=== PATIENT | male | born 1955 | race Caucasian/White ===

== ENCOUNTER 2020-07-07 15:53 | Emergency (ER) | payer OTHER, SELFPAY ==
[~2020-07-07] VITALS: Ht 172.7 cm; Wt 63.5 kg
[2020-07-07 16:29] VITALS: BP 115/68; Ht 172.7 cm; Wt 63.5 kg
== END 2020-07-07 17:49 | disposition home or self-care (01) ==
LOC: ED 15:53
DX: U07.1 COVID-19 (principal); E11.9 Type 2 diabetes mellitus without complications; M19.90 Unspecified osteoarthritis, unspecified site; Z88.6 Allergy status to analgesic agent
CPT/HCPCS: U0003